=== PATIENT | female | born 1980 | race Caucasian/White ===

== ENCOUNTER 2020-12-12 21:07 | Emergency (ER) | payer MEDICAID ==
[~2020-12-12] VITALS: Ht 157.5 cm; Wt 150.0 kg
[2020-12-12] MEDS ORDERED: ALBUTEROL SULFATE HFA 90 MCG/PUFF 8 GM INHALER IH ONE (23:45)
[2020-12-13 00:34] VITALS: BP 128/82
== END 2020-12-13 00:48 | disposition home or self-care (01) ==
LOC: EMS 21:13
DX: U07.1 COVID-19 (principal); R06.02 Shortness of breath; R07.89 Other chest pain; R10.9 Unspecified abdominal pain
CPT/HCPCS: 71045; 94640; 99283; J3535

== ENCOUNTER 2023-03-26 20:41 | Emergency (ER) | payer MEDICAID ==
[~2023-03-26] VITALS: Ht 157.5 cm; Wt 76.8 kg
[2023-03-26 20:45] VITALS: BP 142/85
[2023-03-26] MEDS ORDERED: ACETAMINOPHEN 500 MG TABLET PO ONE (21:15)
== END 2023-03-26 21:41 | disposition home or self-care (01) ==
LOC: EMS 20:42
DX: S93.402A Sprain of unspecified ligament of left ankle, initial encounter (principal); Z88.0 Allergy status to penicillin; X58.XXXA Exposure to other specified factors, initial encounter; Y93.89 Activity, other specified; Y92.89 Other specified places as the place of occurrence of the external cause; Y99.8 Other external cause status
CPT/HCPCS: 99283